=== PATIENT | female | born 1965 | race Caucasian/White ===

== ENCOUNTER → 2016-04-19 | Outpatient (CLI) | payer OTHER ==
--- NOTE | 2016-04-21 09:53 | MM ---
Reason for exam: screening (asymptomatic). Last mammogram was performed 3 years and 7 months ago. History: Patient is postmenopausal. Family history of breast cancer in paternal aunt and breast cancer in maternal aunt at age 40. Benign US left CoreBiopsy of the left breast, 2010. Benign excisional biopsy of the left breast, 1979. Taking estrogen for 2 years 7 months beginning at age 44. Physical Findings: A clinical breast exam by your physician is recommended on an annual basis and results should be correlated with mammographic findings. MG Screening Mammo w CAD Bilateral CC and MLO view(s) were taken. Prior study comparison: September 08, 2012, bilateral digital screening mammo w/CAD. March 30, 2011, bilateral digital screening mammo w/CAD. The breast tissue is heterogeneously dense. This may lower the sensitivity of mammography. Previous mammotome biopsy in the left breast. There is no discrete abnormality. No significant changes when compared with prior studies. ASSESSMENT: Benign, BI-RAD 2 RECOMMENDATION: Routine screening mammogram of both breasts in 1 year.
== END | disposition home or self-care (01) ==
LOC: RADMAMWWP 11:30
PROVIDERS: ATTEND Specialist
DX: Z12.31 Encounter for screening mammogram for malignant neoplasm of breast (principal)

== ENCOUNTER → 2017-11-01 | Outpatient (CLI) | payer OTHER ==
[2017-11-01 12:37] LABS: Blood Urea Nitrogen 11 mg/dL (7-17)
--- NOTE | 2017-11-01 14:07 | CT ---
EXAMINATION TYPE: CT abdomen pelvis w con DATE OF EXAM: 11/01/2017 COMPARISON: 04/19/2012 HISTORY: Right lower quadrant pain CT DLP: 2626.9 mGycm Automated exposure control for dose reduction was used. CONTRAST: CT scan of the abdomen pelvis is performed with IV Contrast, patient injected with 100 mL of Isovue 3 00. FINDINGS- LUNG BASES- No significant abnormality is appreciated. LIVER/GB-there is diffusely reduced in attenuation correlate for hepatic steatosis. PANCREAS- No gross abnormality is seen. SPLEEN- No gross abnormality is seen. ADRENALS-stable nonspecific 1 cm nodularity of the left adrenal gland. KIDNEYS/BLADDER- no hydronephrosis nephrolithiasis or renal mass. BOWEL-bowel gas pattern nonspecific. Appendix normal.. LYMPH NODES- No greater than 1cm abdominal or pelvic lymph nodes areappreciated. OSSEOUS STRUCTURES-hypertrophic and degenerative change of the spine.. OTHER- aorta of normal caliber. No free fluid or free air. IMPRESSION- 1. Hepatic steatosis
== END ==
LOC: RADCTMAIN 11:28
PROVIDERS: ATTEND Family Medicine
DX: K76.0 Fatty (change of) liver, not elsewhere classified (principal)
CPT/HCPCS: 82565; 84520; 74177; 36415; Q9967

== ENCOUNTER 2018-04-11 15:39 | Inpatient (IN) | payer OTHER ==
[2018-04-11 16:27] LABS: Basophils # (A) 0.1 k/uL (0-0.2); Basophils % (A) 0 %; Eosinophils # (A) 0.1 k/uL (0-0.7); Eosinophils % (A) 1 %; HGB 14.6 gm/dL (11.4-16.0); Lymphocytes # (A) 1.8 k/uL (1.0-4.8); Lymphocytes % (A) 13 %; MCH 27.6 pg (25.0-35.0); MCHC 32.3 g/dL (31.0-37.0); MCV 85.5 fL (80.0-100.0); Mean Platelet Volume 7.6; Monocytes # (A) 0.4 k/uL (0-1.0); Monocytes % (A) 2 %; Neutrophils # (A) 12.2 k/uL (1.3-7.7); Neutrophils % (A) 83 %; Platelet Count 339 k/uL (150-450); RBC 5.27 m/uL (3.80-5.40); RDW 13.8 % (11.5-15.5); WBC 14.7 k/uL (3.8-10.6)
[2018-04-11 16:35] LABS: Anion Gap 12 mmol/L; Blood Urea Nitrogen 16 mg/dL (7-17); Calcium 10.4 mg/dL (8.4-10.2); Carbon Dioxide 24 mmol/L (22-30); Chloride 102 mmol/L (98-107); Glucose 237 mg/dL (74-99); Potassium 4.6 mmol/L (3.5-5.1); Sodium 138 mmol/L (137-145)
--- NOTE | 2018-04-11 16:36 | ED ---
Skin/Abscess/FB HPI - General Source: patient, RN notes reviewed Mode of arrival: ambulatory Limitations: no limitations <Cristino Morgan - Last Filed: 04/11/18 18:01> <Caleb Caputo - Last Filed: 04/11/18 18:53> - General Chief complaint: Skin/Abscess/Foreign Body Stated complaint: POSS SPIDER BITE Time Seen by Provider: 04/11/18 15:55 - History of Present Illness Initial comments: 52-year-old female presents emergency Department chief complaint of infection, bite above her right eye. Patient states it has been there for over 10 days. Patient has been on clindamycin, recent started on doxycycline and prednisone. She states she does not feel this any better. She has NO KNOWN DRUG ALLERGIES. Patient has no history of skin infections. Denies any pain with ocular movement. She states that they're a red area and swelling around her right eye. Denies any blurred vision, headache or dizziness. (Cristino Morgan) - Related Data Home Medications Medication Instructions Recorded Confirmed Doxycycline [Vibramycin] 100 mg PO BID 04/11/18 04/11/18 Estradiol [Estrace] 1 mg PO DAILY 04/11/18 04/11/18 FLUoxetine HCL [PROzac] 40 mg PO HS 04/11/18 04/11/18 Insulin Glargine,Hum.rec.anlog 56 unit SQ HS 04/11/18 04/11/18 [Basaglar Kwikpen U-100] Levothyroxine Sodium [Synthroid] 75 mcg PO DAILY 04/11/18 04/11/18 Pravastatin Sodium [Pravachol] 20 mg PO HS 04/11/18 04/11/18 buPROPion XL [Wellbutrin Xl] 300 mg PO HS 04/11/18 04/11/18 glipiZIDE [Glucotrol] 5 mg PO DAILY 04/11/18 04/11/18 metFORMIN HCL [Glucophage] 850 mg PO BID 04/11/18 04/11/18 predniSONE 50 mg PO DAILY 04/11/18 04/11/18 sitaGLIPtin [Januvia] 50 mg PO DAILY 04/11/18 04/11/18 Allergies Allergy/AdvReac Type Severity Reaction Status Date / Time No Known Allergies Allergy Verified 04/11/18 16:56 Review of Systems ROS Other: All systems not noted in ROS Statement are negative. <Cristino Morgan - Last Filed: 04/11/18 18:01> ROS Other: All systems not noted in ROS Statement are negative. <Caleb Caputo - Last Filed: 04/11/18 18:53> ROS Statement: Those systems with pertinent positive or pertinent negative responses have been documented in the HPI. Past Medical History Past Medical History: Diabetes Mellitus, Hypertension History of Any Multi-Drug Resistant Organisms: None Reported Past Surgical History: Hysterectomy Past Psychological History: No Psychological Hx Reported Smoking Status: Never smoker Past Alcohol Use History: None Reported Past Drug Use History: None Reported <Cristino Morgan - Last Filed: 04/11/18 18:01> General Exam Limitations: no limitations General appearance: alert, in no apparent distress Head exam: Present: atraumatic, normocephalic, normal inspection Eye exam: Present: normal appearance, PERRL, EOMI, periorbital swelling (Mild right with erythema, sore noted above the right arm). Absent: scleral icterus, conjunctival injection ENT exam: Present: normal exam, normal oropharynx, mucous membranes moist, TM's normal bilaterally, normal external ear exam Neck exam: Present: normal inspection, full ROM. Absent: tenderness, meningismus, lymphadenopathy Respiratory exam: Present: normal lung sounds bilaterally. Absent: respiratory distress, wheezes, rales, rhonchi, stridor Cardiovascular Exam: Present: regular rate, normal rhythm, normal heart sounds. Absent: systolic murmur, diastolic murmur, rubs, gallop, clicks <Cristino Morgan - Last Filed: 04/11/18 18:01> Course <Cristino Morgan - Last Filed: 04/11/18 18:01> <Caleb Caputo - Last Filed: 04/11/18 18:53> Vital Signs 04/11/18 04/11/18 15:43 17:48 Temperature 98.6 F Pulse Rate 94 93 Respiratory 18 18 Rate Blood Pressure 145/84 133/96 O2 Sat by Pulse 99 96 Oximetry - Reevaluation(s) Reevaluation #1: 04/11/18 18:52 PA supervision: I proceeded bild-at-ofaw evaluation the patient and did discuss the findings with her and her . Patient presented with a left for had lesion possibly a spider bite that has not been on 2 courses of antibiotics and is getting worse not better. She does have evidence of preseptal edema. This is confirmed on CAT scan. I did discuss the case with Dr. Briggs. The patient will be admitted with infectious disease consultation. I do agree with the assessment and plan the patient and her are also in agreement. (Caleb Caputo) Medical Decision Making - Lab Data Result diagrams: 04/11/18 14:12 04/11/18 14:12 <Cristino Morgan - Last Filed: 04/11/18 18:01> - Lab Data Result diagrams: 04/11/18 14:12 04/11/18 14:12 <Caleb Caputo - Last Filed: 04/11/18 18:53> - Medical Decision Making 52-year-old female presented emergency department for facial swelling. Patient CT and lab work. Patient found to have mild periorbital cellulitis. Patient will be admitted as she's failed outpatient treatment. Rocephin initially given , vancomycin is added. (Cristino Morgan) - Lab Data Lab Results 04/11/18 04/11/18 Range/Units 14:12 14:12 WBC 14.7 H (3.8-10.6) k/uL RBC 5.27 (3.80-5.40) m/uL Hgb 14.6 (11.4-16.0) gm/dL Hct 45.0 (34.0-46.0) % MCV 85.5 (80.0-100.0) fL MCH 27.6 (25.0-35.0) pg MCHC 32.3 (31.0-37.0) g/dL RDW 13.8 (11.5-15.5) % Plt Count 339 (150-450) k/uL Neutrophils % 83 % Lymphocytes % 13 % Monocytes % 2 % Eosinophils % 1 % Basophils % 0 % Neutrophils # 12.2 H (1.3-7.7) k/uL Lymphocytes # 1.8 (1.0-4.8) k/uL Monocytes # 0.4 (0-1.0) k/uL Eosinophils # 0.1 (0-0.7) k/uL Basophils # 0.1 (0-0.2) k/uL Sodium 138 (137-145) mmol/L Potassium 4.6 (3.5-5.1) mmol/L Chloride 102 (98-107) mmol/L Carbon Dioxide 24 (22-30) mmol/L Anion Gap 12 mmol/L BUN 16 (7-17) mg/dL Creatinine 0.70 (0.52-1.04) mg/dL Est GFR (CKD-EPI)AfAm >90 (>60 ml/min/1.73 sqM) Est GFR (CKD-EPI)NonAf >90 (>60 ml/min/1.73 sqM) Glucose 237 H (74-99) mg/dL Calcium 10.4 H (8.4-10.2) mg/dL Disposition <Cristino Morgan - Last Filed: 04/11/18 18:01> <Caleb Caputo - Last Filed: 04/11/18 18:53> Clinical Impression: Periorbital cellulitis Disposition: ADMITTED IP TO THIS HOSP Condition: Fair
--- NOTE | 2018-04-11 17:46 | CT ---
EXAMINATION TYPE: CT orbits w con DATE OF EXAM: 04/11/2018 COMPARISON: None HISTORY: WOUND TO RIGHT SUPERIOR ORBITAL AREA CT DLP: 312.6 mGycm Automated exposure control for dose reduction was used. CONTRAST: Performed with IV Contrast, patient injected with 100 mL of Isovue 300. FINDINGS: Right orbit shows mild preseptal soft tissue swelling. The right orbit and its structures are intact. No fracture. The left orbit has normal appearance. Paranasal sinuses are clear. Facial skeleton is negative. No incidental soft tissue findings. IMPRESSION: MILD RIGHT ORBITAL PRESEPTAL SOFT TISSUE SWELLING; NO OTHER FINDINGS.
[2018-04-11] MEDS ORDERED: VANCOMYCIN IV PER PHARMACY 1 EACH MISC MISCELLANE PRN (18:00)
[2018-04-11] MEDS ORDERED: NALOXONE 0.4 MG/ML 1 ML VIAL IV PRN (18:01)
[2018-04-11] MEDS ORDERED: IBUPROFEN 400 MG TAB PO PRN (18:01)
[2018-04-11] MEDS ORDERED: ACETAMINOPHEN TAB 325 MG TAB PO PRN (18:01)
[2018-04-11] MEDS ORDERED: VANCOMYCIN 1,750 MG in SODIUM CHLORIDE 0.9% 500 ML 500 ML IVPB STA (18:08)
[2018-04-11] MEDS: SODIUM CHLORIDE 0.9% 1,000 ML IV SCH (18:51)
[2018-04-11] MEDS: FLUoxetine HCL 20 MG CAP PO SCH (21:23)
[2018-04-11] MEDS: buPROPion XL 300 MG TAB.ER.24H PO SCH (21:24)
[2018-04-11] MEDS: PRAVASTATIN SODIUM 20 MG TAB PO SCH (21:24)
[2018-04-11] MEDS: INSULIN DETEMIR 100 UNIT/ML 10 ML VIAL SQ SCH (21:26)
[2018-04-11 21:35] LABS: Glucose,Whole Blood 345 mg/dL (75-99)
[2018-04-11] MEDS: metFORMIN 850 MG TAB PO SCH (22:26)
[2018-04-11] MEDS: HYDROcodone/APAP 5-325MG 1 EACH TAB PO PRN (22:32)
[2018-04-12] MEDS: LEVOTHYROXINE 75 MCG TAB PO SCH (06:33)
[2018-04-12 07:19] LABS: Glucose,Whole Blood 88 mg/dL (75-99)
[2018-04-12] MEDS: glipiZIDE 5 MG TAB PO SCH (08:27)
[2018-04-12] MEDS: LINAGLIPTIN 5 MG TABLET PO SCH (08:28)
[2018-04-12] MEDS: metFORMIN 850 MG TAB PO SCH ×2 (08:28→17:59)
[2018-04-12] MEDS: HYDROcodone/APAP 5-325MG 1 EACH TAB PO PRN ×2 (08:28→16:57)
[2018-04-12] MEDS: ESTRADIOL 0.5 MG TAB PO SCH (08:29)
[2018-04-12] MEDS: SODIUM CHLORIDE 0.9% 1,000 ML IV SCH ×2 (08:29→22:43)
[2018-04-12 08:59] LABS: Basophils # (A) 0.1 k/uL (0-0.2); Basophils % (A) 1 %; Eosinophils # (A) 0.1 k/uL (0-0.7); Eosinophils % (A) 1 %; HCT 41.1 % (34.0-46.0); Lymphocytes % (A) 35 %; MCH 27.3 pg (25.0-35.0); MCHC 31.6 g/dL (31.0-37.0); MCV 86.5 fL (80.0-100.0); Mean Platelet Volume 7.5; Monocytes # (A) 0.7 k/uL (0-1.0); Monocytes % (A) 4 %; Neutrophils # (A) 8.5 k/uL (1.3-7.7); Neutrophils % (A) 57 %; Platelet Count 320 k/uL (150-450); RBC 4.75 m/uL (3.80-5.40); RDW 13.9 % (11.5-15.5); WBC 14.8 k/uL (3.8-10.6)
[2018-04-12] MEDS ORDERED: VANCOMYCIN 1,750 MG in SODIUM CHLORIDE 0.9% 500 ML 500 ML IVPB SCH (09:00)
[2018-04-12 09:02] LABS: Lymphocytes # (A) 5.2 k/uL (1.0-4.8)
[2018-04-12 09:24] LABS: ALT 20 U/L (9-52); AST 17 U/L (14-36); Albumin 3.8 g/dL (3.5-5.0); Alkaline Phosphatase 71 U/L (38-126); Anion Gap 7 mmol/L; Blood Urea Nitrogen 15 mg/dL (7-17); Calcium 9.4 mg/dL (8.4-10.2); Carbon Dioxide 30 mmol/L (22-30); Chloride 104 mmol/L (98-107); Glucose 180 mg/dL (74-99); Potassium 4.3 mmol/L (3.5-5.1); Sodium 141 mmol/L (137-145); Total Bilirubin 0.2 mg/dL (0.2-1.3); Total Protein 6.5 g/dL (6.3-8.2)
[2018-04-12] MEDS: DAPTOmycin 500 MG in SODIUM CHLORIDE 0.9% 50 ML IVPB SCH (09:38)
[2018-04-12] MEDS: MUPIROCIN 2% OINT 22 GM TUBE TOPICAL SCH ×3 (09:38→22:45)
[2018-04-12 11:08] LABS: Poikilocytosis (M) Present
[2018-04-12 11:44] LABS: Glucose,Whole Blood 86 mg/dL (75-99)
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
[2018-04-12] MEDS: ONDANSETRON 4 MG/2 ML VIAL IVP PRN ×2 (12:43→18:46)
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
[2018-04-12 17:35] LABS: Glucose,Whole Blood 119 mg/dL (75-99)
[2018-04-12 20:24] LABS: Glucose,Whole Blood 207 mg/dL (75-99)
--- NOTE | 2018-04-12 22:01 | P.CON ---
Consult Note - . Consult date: 04/12/18 Assessment/Plan:: This is a morbidly obese 52-year-old female who gives history that she noticed a bump on her forehead over her right eye about 2 weeks ago and she initially thought it was a spider bite. It felt like a mosquito bite and initially it was itchy. She was seen by her primary care doctor and was put on clindamycin for both a sinus infection and also for this lesion on her forehead. She states that was started on of last week and she was also placed on prednisone for 5 days which she completed yesterday. On Tuesday she was not getting any better and actually she had increased swelling to her face and it spread into her right orbit, the cheek and jaw with enlarged lymph nodes. On Tuesday she had a recheck with her doctor and was placed on doxycycline and has taken a total of 3 doses with only increasing redness and edema. She states she has been using antibacterial soap on the area and now it has a dark spot in the middle but no drainage she has been applying triple antibiotic ointment. The pain became more severe and the swelling in her eye affected her vision and she came into [facility] emergency center for evaluation. She has been afebrile, white count 14.7, creatinine 0.7. CAT scan of the head and orbit showed mild right orbital preseptal soft tissue swelling. Patient was started on Rocephin and vancomycin and admitted to the [facility] floor. Blood cultures in progress. Patient states that ice has helped a little bit with the pain but otherwise she is not feeling much better. Patient believes that her last hemoglobin A1c was around 7. please see the consult note is dictated by nurse practitioner Mrs. Emy Alonzo. this pleasant 52-year-old woman is a known history of diabetes mellitus developed the significant preseptal cellulitis of the right periorbital area. The patient was convinced that she had a brown recluse spider bite. We discussed that they are not endemic to [place], it is winter and highly unlikely that this is the etiology of this problem. With her diabetes in the current abnormality it is highly likely this is a staphylococcal infection, could even be MRSA although she has no history, it would treat appropriately. Ceftriaxone and daptomycin have been initiated while cultures are in process. With antibiotic therapy she is now showing improvement already from the time of admission. Leukocytosis is due to underlying infection. The patient does not understand other than some head injury how she could obtain this infection. We do discuss that infections occur in patients with diabetes are more likely to have infections and others. Innocuous injury and trauma often initiates these have infections. There is evidence of any necrosis, the site appears to have more of a phlegmon and abscess and surgical drainage is not indicated at this time but may change required drainage in the near future. Would continue current course of antibiotic therapy. Is having significant pain we'll transition Motrin to Toradol to improve pain control. I agree with the evaluation assessment and plan as dictated by nurse practitioner Mrs. Emy Alonzo.
[2018-04-12] MEDS: buPROPion XL 300 MG TAB.ER.24H PO SCH (22:44)
[2018-04-12] MEDS: PRAVASTATIN SODIUM 20 MG TAB PO SCH (22:44)
[2018-04-12] MEDS: INSULIN DETEMIR 100 UNIT/ML 10 ML VIAL SQ SCH (22:44)
[2018-04-12] MEDS: FLUoxetine HCL 20 MG CAP PO SCH (22:44)
[2018-04-12] MEDS: KETOROLAC 30 MG/ML 1 ML VIAL IVP SCH (23:37)
[2018-04-13] MEDS: KETOROLAC 30 MG/ML 1 ML VIAL IVP SCH ×3 (05:42→17:53)
[2018-04-13] MEDS: LEVOTHYROXINE 75 MCG TAB PO SCH (05:43)
[2018-04-13 07:17] LABS: Glucose,Whole Blood 69 mg/dL (75-99)
[2018-04-13 07:29] LABS: Glucose,Whole Blood 98 mg/dL (75-99)
[2018-04-13 08:34] LABS: HCT 41.4 % (34.0-46.0); Hypochromasia Slight; MCH 27.2 pg (25.0-35.0); MCHC 31.3 g/dL (31.0-37.0); MCV 87.1 fL (80.0-100.0); Mean Platelet Volume 7.6; Platelet Count 333 k/uL (150-450); RBC 4.76 m/uL (3.80-5.40); WBC 12.1 k/uL (3.8-10.6)
[2018-04-13 08:57] LABS: ALT 24 U/L (9-52); AST 19 U/L (14-36); Albumin 3.5 g/dL (3.5-5.0); Alkaline Phosphatase 66 U/L (38-126); Anion Gap 8 mmol/L; Blood Urea Nitrogen 15 mg/dL (7-17); Calcium 9.3 mg/dL (8.4-10.2); Carbon Dioxide 29 mmol/L (22-30); Chloride 105 mmol/L (98-107); Glucose 94 mg/dL (74-99); Potassium 4.1 mmol/L (3.5-5.1); Sodium 142 mmol/L (137-145); Total Bilirubin 0.2 mg/dL (0.2-1.3); Total Protein 6.2 g/dL (6.3-8.2)
[2018-04-13] MEDS: DAPTOmycin 500 MG in SODIUM CHLORIDE 0.9% 50 ML IVPB SCH (09:00)
[2018-04-13] MEDS: metFORMIN 850 MG TAB PO SCH ×2 (09:02→17:53)
[2018-04-13] MEDS: LINAGLIPTIN 5 MG TABLET PO SCH (09:02)
[2018-04-13] MEDS: PANTOPRAZOLE 40 MG TABLET PO SCH (09:02)
[2018-04-13] MEDS: glipiZIDE 5 MG TAB PO SCH (09:02)
[2018-04-13] MEDS: ENOXAPARIN 40 MG/0.4 ML SYRINGE SQ SCH (09:02)
[2018-04-13] MEDS: MUPIROCIN 2% OINT 22 GM TUBE TOPICAL SCH ×3 (09:02→20:53)
[2018-04-13] MEDS: ESTRADIOL 0.5 MG TAB PO SCH (09:02)
[2018-04-13] MEDS: HYDROcodone/APAP 5-325MG 1 EACH TAB PO PRN ×2 (09:05→21:01)
[2018-04-13 10:35] LABS: Eosinophils # (M) 0.24 k/uL (0-0.7); Lymphocytes # (M) 5.08 k/uL (1.0-4.8); Monocytes # (M) 0.85 k/uL (0-1.0); Neutrophils # (M) 5.93 k/uL (1.3-7.7); Neutrophils % (M) 49 %; Nucleated Red Blood Cells 0 /100 WBC (0-0); Total Cells Counted 100
[2018-04-13 10:36] LABS: Anisocytosis (M) Present; Poikilocytosis (M) Present
--- NOTE | 2018-04-13 12:02 | P.PN ---
Subjective Progress Note Date: 04/13/18 This is a 52-year-old female patient of Dr. Galo. Patient presented to the emergency room with complaints of increased pain and swelling over right eye possibly due to bug bite. Patient states this has been happening for about 10 days. Patient does not remember seeing about but believes that she was bitten by something throughout the night. Patient was treated outpatient with minimal improvement. She has past medical history of diabetes mellitus and hypertension. CT of the orbit is and had completed showing mild right orbital preseptal soft tissue swelling with no other findings. Dr. Davis has been consulted for infectious disease. Patient started on Rocephin and daptomycin per infectious disease. Blood cultures have been ordered. At this time patient denies chest pain or shortness breath. Patient denies nausea vomiting or diarrhea. Patient denies any urinary burning or frequency. On 04/13/2017 patient is alert and oriented 3. Patient does report some slight improvement with right eye edema and discomfort. Patient remains on Rocephin and daptomycin per infectious disease. Blood cultures currently pending. She denies chest pain or shortness breath. Patient denies nausea vomiting or diarrhea. Patient denies any urinary burning or frequency. Objective - Vital Signs Vital signs: Vital Signs Temp 98.8 F 04/13/18 08:03 Pulse 73 04/13/18 08:03 Resp 18 04/13/18 08:03 BP 144/77 04/13/18 08:03 Pulse Ox 94 L 04/13/18 08:03 Intake & Output 04/12/18 04/13/18 04/13/18 18:59 06:59 18:59 Intake Total 500 690 Balance 500 690 Intake: Intake, IV Titration 150 Amount Sodium Chloride 0.9% 1, 150 000 ml @ 75 mls/hr IV . [id number] PATRICK Rx#:[id number] Oral 500 540 Other: Voiding Method Toilet Toilet # Voids 3 - Exam Head above the right eye redness with small puncture wound noted. Swelling noted to periorbital area Neck supple Lungs clear to auscultation bilaterally no wheezing or crackles Heart regular rate and rhythm S1-S2, no rub or gallop Abdomen is soft nontender nondistended positive bowel sounds no hepatosplenomegaly Extremities no edema Neuro alert and orientated to 3 - Labs CBC & Chem 7: 04/13/18 07:49 04/13/18 07:49 Labs: Abnormal Lab Results - Last 24 Hours (Table) 04/12/18 04/12/18 04/13/18 Range/Units 17:11 20:13 07:02 WBC (3.8-10.6) k/uL Lymphocytes # (Manual) (1.0-4.8) k/uL POC Glucose (mg/dL) 119 H 207 H 69 L (75-99) mg/dL Total Protein (6.3-8.2) g/dL 04/13/18 04/13/18 Range/Units 07:49 07:49 WBC 12.1 H (3.8-10.6) k/uL Lymphocytes # (Manual) 5.08 H (1.0-4.8) k/uL POC Glucose (mg/dL) (75-99) mg/dL Total Protein 6.2 L (6.3-8.2) g/dL Microbiology - Last 24 Hours (Table) 04/11/18 14:12 Blood Culture - Preliminary Blood No Growth after 24 hours Assessment and Plan Assessment: 1. Periorbital cellulitis. CT completed showing mild right orbital preseptal soft tissue swelling; no other findings. Dr. Davis has been consulted for infectious disease. Patient started on Rocephin and daptomycin. Blood culture ordered. White blood cell improving to 12.1 2. Diabetes mellitus. Home medications resumed. 3. History of hyperlipidemia. Home meds resumed 4. History of essential hypertension. 5. Hypothyroidism 6. History of anxiety and depression. Home medications resumed DVT prophylaxis Lovenox. GI prophylaxis Protonix I performed an examination of the patient and discussed their management with the Nurse Practitioner. I have reviewed the Nurse Practitioner's notes and agree with the documented findings and plan of care
[2018-04-13 12:06] LABS: Glucose,Whole Blood 129 mg/dL (75-99)
[2018-04-13 17:07] LABS: Glucose,Whole Blood 134 mg/dL (75-99)
[2018-04-13] MEDS: SODIUM CHLORIDE 0.9% 1,000 ML IV SCH ×2 (19:05→20:54)
[2018-04-13 20:13] LABS: Hemoglobin A1C 8.5 % (4.0-6.0)
[2018-04-13 20:27] LABS: Glucose,Whole Blood 237 mg/dL (75-99)
[2018-04-13] MEDS: FLUoxetine HCL 20 MG CAP PO SCH (20:53)
[2018-04-13] MEDS: buPROPion XL 300 MG TAB.ER.24H PO SCH (20:53)
[2018-04-13] MEDS: INSULIN DETEMIR 100 UNIT/ML 10 ML VIAL SQ SCH (20:53)
[2018-04-13] MEDS: PRAVASTATIN SODIUM 20 MG TAB PO SCH (20:53)
[2018-04-13] MEDS ORDERED: KETOROLAC 30 MG/ML 1 ML VIAL IVP SCH (22:01)
[2018-04-14] MEDS: KETOROLAC 30 MG/ML 1 ML VIAL IVP SCH ×5 (00:34→23:37)
[2018-04-14 04:47] LABS: Glucose,Whole Blood 81 mg/dL (75-99)
[2018-04-14] MEDS: LEVOTHYROXINE 75 MCG TAB PO SCH (05:38)
[2018-04-14 07:32] LABS: Glucose,Whole Blood 188 mg/dL (75-99)
[2018-04-14 08:32] LABS: Basophils % (A) 1 %; Eosinophils # (A) 0.3 k/uL (0-0.7); Eosinophils % (A) 3 %; HCT 38.8 % (34.0-46.0); HGB 12.4 gm/dL (11.4-16.0); Hypochromasia Slight; Lymphocytes # (A) 2.8 k/uL (1.0-4.8); Lymphocytes % (A) 30 %; MCH 27.8 pg (25.0-35.0); MCHC 31.8 g/dL (31.0-37.0); MCV 87.2 fL (80.0-100.0); Monocytes # (A) 0.5 k/uL (0-1.0); Monocytes % (A) 5 %; Neutrophils # (A) 5.6 k/uL (1.3-7.7); Neutrophils % (A) 59 %; Platelet Count 278 k/uL (150-450); RBC 4.45 m/uL (3.80-5.40); RDW 13.9 % (11.5-15.5); WBC 9.4 k/uL (3.8-10.6)
[2018-04-14 08:54] LABS: ALT 20 U/L (9-52); AST 15 U/L (14-36); Albumin 3.2 g/dL (3.5-5.0); Alkaline Phosphatase 62 U/L (38-126); Anion Gap 6 mmol/L; Blood Urea Nitrogen 14 mg/dL (7-17); Calcium 9.1 mg/dL (8.4-10.2); Carbon Dioxide 29 mmol/L (22-30); Chloride 106 mmol/L (98-107); Glucose 168 mg/dL (74-99); Potassium 4.8 mmol/L (3.5-5.1); Sodium 141 mmol/L (137-145); Total Bilirubin 0.2 mg/dL (0.2-1.3); Total Protein 5.8 g/dL (6.3-8.2)
[2018-04-14 10:16] VITALS: RESP 16
[2018-04-14] MEDS: ENOXAPARIN 40 MG/0.4 ML SYRINGE SQ SCH (10:16)
[2018-04-14] MEDS: DAPTOmycin 500 MG in SODIUM CHLORIDE 0.9% 50 ML IVPB SCH (10:16)
[2018-04-14] MEDS: metFORMIN 850 MG TAB PO SCH ×2 (10:17→17:50)
[2018-04-14] MEDS: glipiZIDE 5 MG TAB PO SCH (10:17)
[2018-04-14] MEDS: PANTOPRAZOLE 40 MG TABLET PO SCH (10:17)
[2018-04-14] MEDS: LINAGLIPTIN 5 MG TABLET PO SCH (10:17)
[2018-04-14] MEDS: MUPIROCIN 2% OINT 22 GM TUBE TOPICAL SCH ×3 (10:19→21:12)
--- NOTE | 2018-04-14 11:01 | P.PN ---
Subjective Progress Note Date: 04/14/18 This is a 52-year-old female patient of Dr. Galo. Patient presented to the emergency room with complaints of increased pain and swelling over right eye possibly due to bug bite. Patient states this has been happening for about 10 days. Patient does not remember seeing about but believes that she was bitten by something throughout the night. Patient was treated outpatient with minimal improvement. She has past medical history of diabetes mellitus and hypertension. CT of the orbit is and had completed showing mild right orbital preseptal soft tissue swelling with no other findings. Dr. Davis has been consulted for infectious disease. Patient started on Rocephin and daptomycin per infectious disease. Blood cultures have been ordered. At this time patient denies chest pain or shortness breath. Patient denies nausea vomiting or diarrhea. Patient denies any urinary burning or frequency. On 04/13/2017 patient is alert and oriented 3. Patient does report some slight improvement with right eye edema and discomfort. Patient remains on Rocephin and daptomycin per infectious disease. Blood cultures currently pending. She denies chest pain or shortness breath. Patient denies nausea vomiting or diarrhea. Patient denies any urinary burning or frequency. On 04/14/2017 patient is alert and oriented 3. Patient does state some improvement to eye swelling and headache. Blood culture currently remains negative. At this time patient denies chest pain or shortness of breath. Patient denies nausea vomiting or diarrhea. Patient denies any urinary burning or frequency. Objective - Vital Signs Vital signs: Vital Signs Temp 97.5 F L 04/14/18 10:15 Pulse 73 04/14/18 10:15 Resp 16 04/14/18 10:15 BP 119/80 04/14/18 10:15 Pulse Ox 96 04/14/18 10:15 Intake & Output 04/13/18 04/14/18 04/14/18 18:59 06:59 18:59 Intake Total 1905 Balance 1905 Intake: Intake, IV Titration 825 Amount Sodium Chloride 0.9% 1, 775 000 ml @ 75 mls/hr IV . [id number] PATRICK Rx#:[id number] cefTRIAXone 1,000 mg In 50 Sodium Chloride 0.9% 50 ml @ 100 mls/hr IVPB Q12H PATRICK Rx#:[id number] Oral 1080 Other: # Voids 2 2 # Bowel Movements 1 - Exam Head above the right eye redness with small puncture wound noted. Swelling noted to periorbital area Neck supple Lungs clear to auscultation bilaterally no wheezing or crackles Heart regular rate and rhythm S1-S2, no rub or gallop Abdomen is soft nontender nondistended positive bowel sounds no hepatosplenomegaly Extremities no edema Neuro alert and orientated to 3 - Labs CBC & Chem 7: 04/14/18 07:24 04/14/18 07:24 Labs: Abnormal Lab Results - Last 24 Hours (Table) 04/13/18 04/13/18 04/13/18 Range/Units 07:49 11:53 16:50 Glucose (74-99) mg/dL POC Glucose (mg/dL) 129 H 134 H (75-99) mg/dL Hemoglobin A1c 8.5 H (4.0-6.0) % Total Protein (6.3-8.2) g/dL Albumin (3.5-5.0) g/dL 04/13/18 04/14/18 04/14/18 Range/Units 20:16 07:18 07:24 Glucose 168 H (74-99) mg/dL POC Glucose (mg/dL) 237 H 188 H (75-99) mg/dL Hemoglobin A1c (4.0-6.0) % Total Protein 5.8 L (6.3-8.2) g/dL Albumin 3.2 L (3.5-5.0) g/dL Microbiology - Last 24 Hours (Table) 04/11/18 14:12 Blood Culture - Preliminary Blood No Growth after 48 hours Assessment and Plan Assessment: 1. Periorbital cellulitis. CT completed showing mild right orbital preseptal soft tissue swelling; no other findings. Dr. Davis has been consulted for infectious disease. Patient started on Rocephin and daptomycin. White blood cell improving to 9.4. Blood culture currently negative 2. Diabetes mellitus. Home medications resumed. 3. History of hyperlipidemia. Home meds resumed 4. History of essential hypertension. 5. Hypothyroidism 6. History of anxiety and depression. Home medications resumed DVT prophylaxis Lovenox. GI prophylaxis Protonix I performed an examination of the patient and discussed their management with the Nurse Practitioner. I have reviewed the Nurse Practitioner's notes and agree with the documented findings and plan of care
[2018-04-14] MEDS ORDERED: ESTRADIOL 1 MG PO SCH (12:00)
[2018-04-14 12:04] LABS: Glucose,Whole Blood 175 mg/dL (75-99)
[2018-04-14 17:23] LABS: Glucose,Whole Blood 81 mg/dL (75-99)
[2018-04-14] MEDS: SODIUM CHLORIDE 0.9% 1,000 ML IV SCH (17:49)
[2018-04-14] MEDS: ESTRADIOL 1 MG PO SCH (17:52)
[2018-04-14 20:33] LABS: Glucose,Whole Blood 132 mg/dL (75-99)
[2018-04-14] MEDS: BACITRACIN/POLYMYX 500-10,000 UNIT/GM OINT 14 GM TUBE TOPICAL SCH ×2 (21:08→21:11)
[2018-04-14] MEDS: INSULIN DETEMIR 100 UNIT/ML 10 ML VIAL SQ SCH (21:10)
[2018-04-14] MEDS: ONDANSETRON 4 MG/2 ML VIAL IVP PRN (21:10)
[2018-04-14] MEDS: FLUoxetine HCL 20 MG CAP PO SCH (21:12)
[2018-04-14] MEDS: buPROPion XL 300 MG TAB.ER.24H PO SCH (21:12)
[2018-04-14] MEDS: PRAVASTATIN SODIUM 20 MG TAB PO SCH (21:12)
--- NOTE | 2018-04-14 23:53 | P.PN ---
Subjective Progress Note Date: 04/14/18 This is a morbidly obese 52-year-old female who gives history that she noticed a bump on her forehead over her right eye about 2 weeks ago and she initially thought it was a spider bite. It felt like a mosquito bite and initially it was itchy. She was seen by her primary care doctor and was put on clindamycin for both a sinus infection and also for this lesion on her forehead. She states that was started on of last week and she was also placed on prednisone for 5 days which she completed yesterday. On Tuesday she was not getting any better and actually she had increased swelling to her face and it spread into her right orbit, the cheek and jaw with enlarged lymph nodes. On Tuesday she had a recheck with her doctor and was placed on doxycycline and has taken a total of 3 doses with only increasing redness and edema. She states she has been using antibacterial soap on the area and now it has a dark spot in the middle but no drainage she has been applying triple antibiotic ointment. The pain became more severe and the swelling in her eye affected her vision and she came into [facility] emergency center for evaluation. She has been afebrile, white count 14.7, creatinine 0.7. CAT scan of the head and orbit showed mild right orbital preseptal soft tissue swelling. Patient was started on Rocephin and vancomycin and admitted to the [facility] floor. Blood cultures in progress. Patient states that ice has helped a little bit with the pain but otherwise she is not feeling much better. Patient believes that her last hemoglobin A1c was around 7. April 14 2018 patient is certainly much improved. The extensive swelling to the right eye and periorbital area is improved, that I is no longer swollen closed but does have some irritation to the right medial aspect of the eyelid from the extensive swelling. No open other lesions are seen. The site of staph infection on the right forehead is much improved, there is minimal softening of the hard indurated area that has not grossly fluctuant and there is no drainage. Objective - Vital Signs Vital signs: Vital Signs Temp 98.8 F 04/14/18 19:44 Pulse 83 04/14/18 19:44 Resp 16 04/14/18 19:44 BP 127/81 04/14/18 19:44 Pulse Ox 95 04/14/18 19:44 Intake & Output 04/14/18 04/14/18 04/15/18 06:59 18:59 06:59 Intake Total 1905 240 690 Balance 1905 240 690 Intake: Intake, IV Titration 825 150 Amount Sodium Chloride 0.9% 1, 775 150 000 ml @ 75 mls/hr IV . [id number] PATRICK Rx#:[id number] cefTRIAXone 1,000 mg In 50 Sodium Chloride 0.9% 50 ml @ 100 mls/hr IVPB Q12H PATRICK Rx#:[id number] Oral 1080 240 540 Other: Voiding Method Toilet # Voids 2 2 1 # Bowel Movements 1 - Exam Gen: This is a 52-year-old morbidly obese female. She is sitting up in bed and eating breakfast and appears to be comfortable and in no acute distress. HEENT: Head is atraumatic, normocephalic. Wound noted to the area above the right eyebrow, no drainage. He extensive edema there is also dullness in the eye closure is almost completely resolved is a small area of irritation on the right upper lid medial without drainage. Lesions are seen Sclerae is anicteric. Conjunctiva pink. Mucous members of the mouth are moist. No oral lesions. No oropharyngeal erythema or edema. Positive lymph node enlargement on the right. NECK: Supple. No JVD. No lymphadenopathy. No thyromegaly. LUNGS: Clear to auscultation. No wheezes or rhonchi. No intercostal retractions. HEART: Regular rate and rhythm. No murmur. ABDOMEN: Morbidly obese. Soft. Bowel sounds are present. No masses. No tenderness. EXTREMITIES: No pedal edema. No calf tenderness. Dorsalis pedis +2 bilaterally. NEUROLOGICAL: Patient is awake, alert and oriented x3 - Labs CBC & Chem 7: 04/14/18 07:24 04/14/18 07:24 Labs: Abnormal Lab Results - Last 24 Hours (Table) 04/14/18 04/14/18 04/14/18 Range/Units 07:18 07:24 11:51 Glucose 168 H (74-99) mg/dL POC Glucose (mg/dL) 188 H 175 H (75-99) mg/dL Total Protein 5.8 L (6.3-8.2) g/dL Albumin 3.2 L (3.5-5.0) g/dL 04/14/18 Range/Units 20:21 Glucose (74-99) mg/dL POC Glucose (mg/dL) 132 H (75-99) mg/dL Total Protein (6.3-8.2) g/dL Albumin (3.5-5.0) g/dL Microbiology - Last 24 Hours (Table) 04/11/18 14:12 Blood Culture - Preliminary Blood No Growth after 72 hours Laboratory Results WBC 9.4 k/uL (3.8-10.6) 04/14/18 07:24 RBC 4.45 m/uL (3.80-5.40) 04/14/18 07:24 Hgb 12.4 gm/dL (11.4-16.0) 04/14/18 07:24 Hct 38.8 % (34.0-46.0) 04/14/18 07:24 MCV 87.2 fL (80.0-100.0) 04/14/18 07:24 MCH 27.8 pg (25.0-35.0) 04/14/18 07:24 MCHC 31.8 g/dL (31.0-37.0) 04/14/18 07:24 RDW 13.9 % (11.5-15.5) 04/14/18 07:24 Plt Count 278 k/uL (150-450) 04/14/18 07:24 Neutrophils % 59 % 04/14/18 07:24 Neutrophils % (Manual) 49 % 04/13/18 07:49 Lymphocytes % 30 % 04/14/18 07:24 Lymphocytes % (Manual) 42 % 04/13/18 07:49 Monocytes % 5 % 04/14/18 07:24 Monocytes % (Manual) 7 % 04/13/18 07:49 Eosinophils % 3 % 04/14/18 07:24 Eosinophils % (Manual) 2 % 04/13/18 07:49 Basophils % 1 % 04/14/18 07:24 Neutrophils # 5.6 k/uL (1.3-7.7) 04/14/18 07:24 Neutrophils # (Manual) 5.93 k/uL (1.3-7.7) 04/13/18 07:49 Lymphocytes # 2.8 k/uL (1.0-4.8) 04/14/18 07:24 Lymphocytes # (Manual) 5.08 k/uL (1.0-4.8) H 04/13/18 07:49 Monocytes # 0.5 k/uL (0-1.0) 04/14/18 07:24 Monocytes # (Manual) 0.85 k/uL (0-1.0) 04/13/18 07:49 Eosinophils # 0.3 k/uL (0-0.7) 04/14/18 07:24 Eosinophils # (Manual) 0.24 k/uL (0-0.7) 04/13/18 07:49 Basophils # 0.0 k/uL (0-0.2) 04/14/18 07:24 Nucleated RBCs 0 /100 WBC (0-0) 04/13/18 07:49 Manual Slide Review Performed 04/12/18 08:33 Hypochromasia Slight 04/14/18 07:24 Poikilocytosis (manual Present 04/13/18 07:49 Anisocytosis (manual) Present 04/13/18 07:49 Sodium 141 mmol/L (137-145) 04/14/18 07:24 Potassium 4.8 mmol/L (3.5-5.1) 04/14/18 07:24 Chloride 106 mmol/L (98-107) 04/14/18 07:24 Carbon Dioxide 29 mmol/L (22-30) 04/14/18 07:24 Anion Gap 6 mmol/L 04/14/18 07:24 BUN 14 mg/dL (7-17) 04/14/18 07:24 Creatinine 0.76 mg/dL (0.52-1.04) 04/14/18 07:24 Est GFR (CKD-EPI)AfAm >90 (>60 ml/min/1.73 sqM) 04/14/18 07:24 Est GFR (CKD-EPI)NonAf 90 (>60 ml/min/1.73 sqM) 04/14/18 07:24 Glucose 168 mg/dL (74-99) H 04/14/18 07:24 POC Glucose (mg/dL) 132 mg/dL (75-99) H 04/14/18 20:21 POC Glu Hand Stitcher Mp Martin 04/14/18 20:[address] Glu mg/dL 197 04/13/18 07:49 Hemoglobin A1c 8.5 % (4.0-6.0) H 04/13/18 07:49 Calcium 9.1 mg/dL (8.4-10.2) 04/14/18 07:24 Total Bilirubin 0.2 mg/dL (0.2-1.3) 04/14/18 07:24 AST 15 U/L (14-36) 04/14/18 07:24 ALT 20 U/L (9-52) 04/14/18 07:24 Alkaline Phosphatase 62 U/L (38-126) 04/14/18 07:24 Total Protein 5.8 g/dL (6.3-8.2) L 04/14/18 07:24 Albumin 3.2 g/dL (3.5-5.0) L 04/14/18 07:24 Microbiology 04/11/18 14:12 Blood Blood Culture - Preliminary No Growth after 72 hours Assessment and Plan (1) Periorbital cellulitis Narrative/Plan: This pleasant 52-year-old woman is a known history of diabetes mellitus developed the significant preseptal cellulitis of the right periorbital area. The patient was convinced that she had a brown recluse spider bite. We discussed that they are not endemic to [place], it is winter and highly unlikely that this is the etiology of this problem. With her diabetes in the current abnormality it is highly likely this is a staphylococcal infection, could even be MRSA although she has no history, it would treat appropriately. Ceftriaxone and daptomycin have been initiated while cultures are in process. With antibiotic therapy she is now showing improvement already from the time of admission. Leukocytosis is due to underlying infection. The patient does not understand other than some head injury how she could obtain this infection. We do discuss that infections occur in patients with diabetes are more likely to have infections and others. Innocuous injury and trauma often initiates these have infections. There is evidence of any necrosis, the site appears to have more of a phlegmon and abscess and surgical drainage is not indicated at this time but may change required drainage in the near future. Would continue current course of antibiotic therapy. Is having significant pain we'll transition Motrin to Toradol to improve pain control. 04/14/2018 patient is markedly improved. Responding very well to current course of antibiotic therapy with Rocephin and daptomycin. The patient remains convinced that she has had a brown recluse spider bite that her brought home from [place] because his been working there. I suggest that she looks the [facility] website that reports that the vast majority of people think they have a spider bite that developed a skin lesion and infection is actually from staph or MRSA infection. She is responding very well to treatment of an infection and again information is given to her as to why this is most likely staphylococcal infection. Some topical Polysporin ophthalmic will be given to the bit of irritation to the eyelid. Expect that she will be considerably improved and likely Nicola for discharge home tomorrow. Antibiotic therapy can then be device. Severe headache has been well controlled with Toradol and overall she is improved. Current Visit: Yes Status: Acute Code(s): L03.213 - PERIORBITAL CELLULITIS SNOMED Code(s): 628942434
[2018-04-15 02:08] LABS: Glucose,Whole Blood 199 mg/dL (75-99)
[2018-04-15] MEDS: SODIUM CHLORIDE 0.9% 1,000 ML IV SCH (02:39)
[2018-04-15] MEDS: LEVOTHYROXINE 75 MCG TAB PO SCH (05:35)
[2018-04-15] MEDS: KETOROLAC 30 MG/ML 1 ML VIAL IVP SCH ×2 (05:36→12:26)
[2018-04-15 07:20] LABS: Glucose,Whole Blood 98 mg/dL (75-99)
[2018-04-15 08:10] LABS: Basophils # (A) 0.1 k/uL (0-0.2); Basophils % (A) 1 %; Eosinophils # (A) 0.4 k/uL (0-0.7); Eosinophils % (A) 3 %; HCT 39.7 % (34.0-46.0); HGB 12.4 gm/dL (11.4-16.0); Lymphocytes # (A) 3.1 k/uL (1.0-4.8); Lymphocytes % (A) 29 %; MCH 27.3 pg (25.0-35.0); MCHC 31.3 g/dL (31.0-37.0); MCV 87.1 fL (80.0-100.0); Monocytes # (A) 0.6 k/uL (0-1.0); Monocytes % (A) 5 %; Neutrophils # (A) 6.4 k/uL (1.3-7.7); Neutrophils % (A) 60 %; Platelet Count 276 k/uL (150-450); RBC 4.55 m/uL (3.80-5.40); RDW 13.9 % (11.5-15.5); WBC 10.6 k/uL (3.8-10.6)
[2018-04-15 08:16] LABS: ALT 19 U/L (9-52); AST 17 U/L (14-36); Albumin 3.3 g/dL (3.5-5.0); Alkaline Phosphatase 68 U/L (38-126); Anion Gap 5 mmol/L; Blood Urea Nitrogen 12 mg/dL (7-17); Carbon Dioxide 29 mmol/L (22-30); Chloride 108 mmol/L (98-107); Glucose 99 mg/dL (74-99); Potassium 4.6 mmol/L (3.5-5.1); Sodium 142 mmol/L (137-145); Total Bilirubin 0.2 mg/dL (0.2-1.3)
[2018-04-15 08:56] VITALS: BP 123/75; PULSE 83; TEMP 98
[2018-04-15] MEDS: LINAGLIPTIN 5 MG TABLET PO SCH (08:56)
[2018-04-15] MEDS: glipiZIDE 5 MG TAB PO SCH (08:56)
[2018-04-15] MEDS: ONDANSETRON 4 MG/2 ML VIAL IVP PRN (08:56)
[2018-04-15] MEDS: PANTOPRAZOLE 40 MG TABLET PO SCH (08:57)
[2018-04-15] MEDS: metFORMIN 850 MG TAB PO SCH (08:57)
[2018-04-15] MEDS: DAPTOmycin 500 MG in SODIUM CHLORIDE 0.9% 50 ML IVPB SCH (08:57)
[2018-04-15] MEDS: ENOXAPARIN 40 MG/0.4 ML SYRINGE SQ SCH (08:57)
[2018-04-15] MEDS: BACITRACIN/POLYMYX 500-10,000 UNIT/GM OINT 14 GM TUBE TOPICAL SCH (09:00)
[2018-04-15] MEDS: MUPIROCIN 2% OINT 22 GM TUBE TOPICAL SCH (09:01)
[2018-04-15] MEDS: ESTRADIOL 1 MG PO SCH (09:01)
[2018-04-15 12:22] LABS: Glucose,Whole Blood 128 mg/dL (75-99)
--- NOTE | 2018-04-15 14:05 | P.DS ---
Providers Date of admission: 04/11/18 18:01 Expected date of discharge: 04/15/18 Attending physician: Sarah Briggs Consults: 04/11/18 18:30 Consult Physician Stat Consulting Provider: Raffi Davis Reason/Comments: Preseptal cellulitis Do you want consulting provider notified?: Yes Primary care physician: Rosamaria Galo [facility] Course: Discharge diagnosis 1. Periorbital cellulitis. CT completed showing mild right orbital preseptal soft tissue swelling; no other findings. Dr. Davis has been consulted for infectious disease. Patient started on Rocephin and daptomycin. White blood cell improving to 9.4. Blood culture currently negative. Patient has been cleared for discharge from infectious disease patient will be DC'd home on Bactrim per ID 2. Diabetes mellitus. Home medications resumed. 3. History of hyperlipidemia. Home meds resumed 4. History of essential hypertension. 5. Hypothyroidism 6. History of anxiety and depression. Home medications resumed Hospital course This is a 52-year-old female patient of Dr. Galo. Patient presented to the emergency room with complaints of increased pain and swelling over right eye possibly due to bug bite. Patient states this has been happening for about 10 days. Patient does not remember seeing about but believes that she was bitten by something throughout the night. Patient was treated outpatient with minimal improvement. She has past medical history of diabetes mellitus and hypertension. CT of the orbit is and had completed showing mild right orbital preseptal soft tissue swelling with no other findings. Dr. Davis has been consulted for infectious disease. Patient started on Rocephin and daptomycin per infectious disease. Blood cultures have been ordered. At this time patient denies chest pain or shortness breath. Patient denies nausea vomiting or diarrhea. Patient denies any urinary burning or frequency. On 04/13/2017 patient is alert and oriented 3. Patient does report some slight improvement with right eye edema and discomfort. Patient remains on Rocephin and daptomycin per infectious disease. Blood cultures currently pending. She denies chest pain or shortness breath. Patient denies nausea vomiting or diarrhea. Patient denies any urinary burning or frequency. On 04/14/2017 patient is alert and oriented 3. Patient does state some improvement to eye swelling and headache. Blood culture currently remains negative. At this time patient denies chest pain or shortness of breath. Patient denies nausea vomiting or diarrhea. Patient denies any urinary burning or frequency. On 04/15/2017 patient reports effusion she feels significantly improved swelling has significantly decreased to right orbital area. Patient states she feels ready to go home. Culture currently negative. Patient will be DC'd on Bactrim per ID. Patient to follow-up with primary care provider. White blood cell has normalized. At this time patient denies chest pain or shortness of breath. Denies nausea vomiting or diarrhea. Patient denies any urinary burning or frequency I performed an examination of the patient and discussed their management with the Nurse Practitioner. I have reviewed the Nurse Practitioner's notes and agree with the documented findings and plan of care Patient Condition at Discharge: Stable Plan - Discharge Summary Discharge Rx Participant: No New Discharge Prescriptions: New Ondansetron [Zofran ODT] 4 mg PO Q12HR #14 tab Sulfamethox-Tmp 800-160Mg [Bactrim DS 800-160 mg] 1 tab PO Q12HR #14 tab Continue glipiZIDE [Glucotrol] 5 mg PO DAILY Pravastatin Sodium [Pravachol] 20 mg PO HS Levothyroxine Sodium [Synthroid] 75 mcg PO DAILY Insulin Glargine,Hum.rec.anlog [Basaglar Kwikpen U-100] 56 unit SQ HS FLUoxetine HCL [PROzac] 40 mg PO HS sitaGLIPtin [Januvia] 50 mg PO DAILY Estradiol [Estrace] 1 mg PO DAILY metFORMIN HCL [Glucophage] 850 mg PO BID buPROPion XL [Wellbutrin XL] 300 mg PO HS Discontinued predniSONE 50 mg PO DAILY Doxycycline [Vibramycin] 100 mg PO BID Discharge Medication List Estradiol [Estrace] 1 mg PO DAILY 04/11/18 [History] FLUoxetine HCL [PROzac] 40 mg PO HS 04/11/18 [History] Insulin Glargine,Hum.rec.anlog [Basaglar Kwikpen U-100] 56 unit SQ HS 04/11/18 [ History] Levothyroxine Sodium [Synthroid] 75 mcg PO DAILY 04/11/18 [History] Pravastatin Sodium [Pravachol] 20 mg PO HS 04/11/18 [History] buPROPion XL [Wellbutrin XL] 300 mg PO HS 04/11/18 [History] glipiZIDE [Glucotrol] 5 mg PO DAILY 04/11/18 [History] metFORMIN HCL [Glucophage] 850 mg PO BID 04/11/18 [History] sitaGLIPtin [Januvia] 50 mg PO DAILY 04/11/18 [History] Ondansetron [Zofran ODT] 4 mg PO Q12HR #14 tab 04/15/18 [Rx] Sulfamethox-Tmp 800-160Mg [Bactrim DS 800-160 mg] 1 tab PO Q12HR #14 tab [Rx] Follow up Appointment(s)/Referral(s): Rosamaria Galo MD [Primary Care Provider] - 1-2 days Activity/Diet/Wound Care/Special Instructions: Activity as tolerated Diet regular Discharge Disposition: HOME SELF-CARE
--- NOTE | 2018-04-15 16:43 | P.PN ---
Subjective Progress Note Date: 04/15/18 This is a morbidly obese 52-year-old female who gives history that she noticed a bump on her forehead over her right eye about 2 weeks ago and she initially thought it was a spider bite. It felt like a mosquito bite and initially it was itchy. She was seen by her primary care doctor and was put on clindamycin for both a sinus infection and also for this lesion on her forehead. She states that was started on of last week and she was also placed on prednisone for 5 days which she completed yesterday. On Tuesday she was not getting any better and actually she had increased swelling to her face and it spread into her right orbit, the cheek and jaw with enlarged lymph nodes. On Tuesday she had a recheck with her doctor and was placed on doxycycline and has taken a total of 3 doses with only increasing redness and edema. She states she has been using antibacterial soap on the area and now it has a dark spot in the middle but no drainage she has been applying triple antibiotic ointment. The pain became more severe and the swelling in her eye affected her vision and she came into [facility] emergency center for evaluation. She has been afebrile, white count 14.7, creatinine 0.7. CAT scan of the head and orbit showed mild right orbital preseptal soft tissue swelling. Patient was started on Rocephin and vancomycin and admitted to the [facility] floor. Blood cultures in progress. Patient states that ice has helped a little bit with the pain but otherwise she is not feeling much better. Patient believes that her last hemoglobin A1c was around 7. April 14 2018 patient is certainly much improved. The extensive swelling to the right eye and periorbital area is improved, that I is no longer swollen closed but does have some irritation to the right medial aspect of the eyelid from the extensive swelling. No open other lesions are seen. The site of staph infection on the right forehead is much improved, there is minimal softening of the hard indurated area that has not grossly fluctuant and there is no drainage. 04/15/2018 patient is now much improved. Headache is down to 1, swelling to the face is generally resolved and she has no other new complaint. Looks forward to going home without having fevers or chills or other discomfort. She' s had some mild nausea and is done well with some Zofran. Objective - Vital Signs Vital signs: Vital Signs Temp 98.0 F 04/15/18 08:52 Pulse 83 04/15/18 08:52 Resp 16 04/15/18 08:52 BP 123/75 04/15/18 08:52 Pulse Ox 94 L 04/15/18 08:52 Intake & Output 04/14/18 04/15/18 04/15/18 18:59 06:59 18:59 Intake Total 240 1280 Balance 240 1280 Intake: Intake, IV Titration 200 Amount Sodium Chloride 0.9% 1, 150 000 ml @ 75 mls/hr IV . [id number] PATRICK Rx#:[id number] cefTRIAXone 1,000 mg In 50 Sodium Chloride 0.9% 50 ml @ 100 mls/hr IVPB Q12H PATRICK Rx#:[id number] Oral 240 1080 Other: Voiding Method Toilet # Voids 2 2 - Exam Gen: This is a 52-year-old morbidly obese female. She is sitting up in bed and eating breakfast and appears to be comfortable and in no acute distress. HEENT: Head is atraumatic, normocephalic. Wound noted to the area above the right eyebrow, no drainage. He extensive edema there is also dullness in the eye closure is almost completely resolved is a small area of irritation on the right upper lid medial without drainage. The area of irritation is considerably better on the right parietal as well as on the right eyelid Sclerae is anicteric. Conjunctiva pink. Mucous members of the mouth are moist. No oral lesions. No oropharyngeal erythema or edema. Positive lymph node enlargement on the right. NECK: Supple. No JVD. No lymphadenopathy. No thyromegaly. LUNGS: Clear to auscultation. No wheezes or rhonchi. No intercostal retractions. HEART: Regular rate and rhythm. No murmur. ABDOMEN: Morbidly obese. Soft. Bowel sounds are present. No masses. No tenderness. EXTREMITIES: No pedal edema. No calf tenderness. Dorsalis pedis +2 bilaterally. NEUROLOGICAL: Patient is awake, alert and oriented x3 - Labs CBC & Chem 7: 04/15/18 07:13 04/15/18 07:13 Labs: Abnormal Lab Results - Last 24 Hours (Table) 01/02/2004/15/18 04/15/18 Range/Units 20:21 01:57 07:13 Chloride 108 H (98-107) mmol/L POC Glucose (mg/dL) 132 H 199 H (75-99) mg/dL Total Protein 6.0 L (6.3-8.2) g/dL Albumin 3.3 L (3.5-5.0) g/dL 04/15/18 Range/Units 12:11 Chloride (98-107) mmol/L POC Glucose (mg/dL) 128 H (75-99) mg/dL Total Protein (6.3-8.2) g/dL Albumin (3.5-5.0) g/dL Microbiology - Last 24 Hours (Table) 04/11/18 14:12 Blood Culture - Preliminary Blood No Growth after 72 hours Laboratory Results WBC 10.6 k/uL (3.8-10.6) 04/15/18 07:13 RBC 4.55 m/uL (3.80-5.40) 04/15/18 07:13 Hgb 12.4 gm/dL (11.4-16.0) 04/15/18 07:13 Hct 39.7 % (34.0-46.0) 04/15/18 07:13 MCV 87.1 fL (80.0-100.0) 04/15/18 07:13 MCH 27.3 pg (25.0-35.0) 04/15/18 07:13 MCHC 31.3 g/dL (31.0-37.0) 04/15/18 07:13 RDW 13.9 % (11.5-15.5) 04/15/18 07:13 Plt Count 276 k/uL (150-450) 04/15/18 07:13 Neutrophils % 60 % 04/15/18 07:13 Neutrophils % (Manual) 49 % 04/13/18 07:49 Lymphocytes % 29 % 04/15/18 07:13 Lymphocytes % (Manual) 42 % 04/13/18 07:49 Monocytes % 5 % 04/15/18 07:13 Monocytes % (Manual) 7 % 04/13/18 07:49 Eosinophils % 3 % 04/15/18 07:13 Eosinophils % (Manual) 2 % 04/13/18 07:49 Basophils % 1 % 04/15/18 07:13 Neutrophils # 6.4 k/uL (1.3-7.7) 04/15/18 07:13 Neutrophils # (Manual) 5.93 k/uL (1.3-7.7) 04/13/18 07:49 Lymphocytes # 3.1 k/uL (1.0-4.8) 04/15/18 07:13 Lymphocytes # (Manual) 5.08 k/uL (1.0-4.8) H 04/13/18 07:49 Monocytes # 0.6 k/uL (0-1.0) 04/15/18 07:13 Monocytes # (Manual) 0.85 k/uL (0-1.0) 04/13/18 07:49 Eosinophils # 0.4 k/uL (0-0.7) 04/15/18 07:13 Eosinophils # (Manual) 0.24 k/uL (0-0.7) 04/13/18 07:49 Basophils # 0.1 k/uL (0-0.2) 04/15/18 07:13 Nucleated RBCs 0 /100 WBC (0-0) 04/13/18 07:49 Manual Slide Review Performed 04/12/18 08:33 Hypochromasia Slight 04/14/18 07:24 Poikilocytosis (manual Present 04/13/18 07:49 Anisocytosis (manual) Present 04/13/18 07:49 Sodium 142 mmol/L (137-145) 04/15/18 07:13 Potassium 4.6 mmol/L (3.5-5.1) 04/15/18 07:13 Chloride 108 mmol/L (98-107) H 04/15/18 07:13 Carbon Dioxide 29 mmol/L (22-30) 04/15/18 07:13 Anion Gap 5 mmol/L 04/15/18 07:13 BUN 12 mg/dL (7-17) 04/15/18 07:13 Creatinine 0.73 mg/dL (0.52-1.04) 04/15/18 07:13 Est GFR (CKD-EPI)AfAm >90 (>60 ml/min/1.73 sqM) 04/15/18 07:13 Est GFR (CKD-EPI)NonAf >90 (>60 ml/min/1.73 sqM) 04/15/18 07:13 Glucose 99 mg/dL (74-99) 04/15/18 07:13 POC Glucose (mg/dL) 128 mg/dL (75-99) H 04/15/18 12:11 POC Glu [employer] ID Jonathan López 04/15/18 12:[address] Glu mg/dL 197 04/13/18 07:49 Hemoglobin A1c 8.5 % (4.0-6.0) H 04/13/18 07:49 Calcium 9.0 mg/dL (8.4-10.2) 04/15/18 07:13 Total Bilirubin 0.2 mg/dL (0.2-1.3) 04/15/18 07:13 AST 17 U/L (14-36) 04/15/18 07:13 ALT 19 U/L (9-52) 04/15/18 07:13 Alkaline Phosphatase 68 U/L (38-126) 04/15/18 07:13 Total Protein 6.0 g/dL (6.3-8.2) L 04/15/18 07:13 Albumin 3.3 g/dL (3.5-5.0) L 04/15/18 07:13 Microbiology 04/11/18 14:12 Blood Blood Culture - Preliminary No Growth after 72 hours Assessment and Plan (1) Periorbital cellulitis Narrative/Plan: This pleasant 52-year-old woman is a known history of diabetes mellitus developed the significant preseptal cellulitis of the right periorbital area. The patient was convinced that she had a brown recluse spider bite. We discussed that they are not endemic to [place], it is winter and highly unlikely that this is the etiology of this problem. With her diabetes in the current abnormality it is highly likely this is a staphylococcal infection, could even be MRSA although she has no history, it would treat appropriately. Ceftriaxone and daptomycin have been initiated while cultures are in process. With antibiotic therapy she is now showing improvement already from the time of admission. Leukocytosis is due to underlying infection. The patient does not understand other than some head injury how she could obtain this infection. We do discuss that infections occur in patients with diabetes are more likely to have infections and others. Innocuous injury and trauma often initiates these have infections. There is evidence of any necrosis, the site appears to have more of a phlegmon and abscess and surgical drainage is not indicated at this time but may change required drainage in the near future. Would continue current course of antibiotic therapy. Is having significant pain we'll transition Motrin to Toradol to improve pain control. 04/14/2018 patient is markedly improved. Responding very well to current course of antibiotic therapy with Rocephin and daptomycin. The patient remains convinced that she has had a brown recluse spider bite that her brought home from [place] because his been working there. I suggest that she looks the [facility] website that reports that the vast majority of people think they have a spider bite that developed a skin lesion and infection is actually from staph or MRSA infection. She is responding very well to treatment of an infection and again information is given to her as to why this is most likely staphylococcal infection. Some topical Polysporin ophthalmic will be given to the bit of irritation to the eyelid. Expect that she will be considerably improved and likely Nicola for discharge home tomorrow. Antibiotic therapy can then be device. Severe headache has been well controlled with Toradol and overall she is improved. 04/15/2018 patient is now further improved. Headache is all most completely resolved, his developed some nausea likely from the anti-inflammatory which is now discontinued and responding to some Zofran. Patient is ready for discharge to home and trimethoprim sulfamethoxazole and Zofran have been sent to her pharmacy and she is being readied for discharge to home. The Polysporin can be continued to the eye irritation over the next few days until completely resolved. She follow up with her primary care physician in the near future and can be referred back to the office if there is any further acute difficulties. Status: Acute Code(s): L03.213 - PERIORBITAL CELLULITIS SNOMED Code(s): 552893781
== END 2018-04-15 15:25 | disposition home or self-care (01) | DRG 603 ==
LOC: EC 15:39 → 4SSUR 18:01
PROVIDERS: ADMIT Internal Medicine; ATTEND Internal Medicine
DX: L03.213 Periorbital cellulitis (principal); Z68.41 Body mass index [BMI] 40.0-44.9, adult; E66.01 Morbid (severe) obesity due to excess calories; E11.9 Type 2 diabetes mellitus without complications; E78.5 Hyperlipidemia, unspecified; B95.8 Unspecified staphylococcus as the cause of diseases classified elsewhere; E03.9 Hypothyroidism, unspecified; R51 Headache; I10 Essential (primary) hypertension; F32.9 Major depressive disorder, single episode, unspecified; F41.9 Anxiety disorder, unspecified; M54.30 Sciatica, unspecified side; Z79.890 Hormone replacement therapy; Z79.4 Long term (current) use of insulin; Z79.899 Other long term (current) drug therapy; Z90.710 Acquired absence of both cervix and uterus; Z87.81 Personal history of (healed) traumatic fracture; Z87.19 Personal history of other diseases of the digestive system; Z87.891 Personal history of nicotine dependence; Z83.3 Family history of diabetes mellitus; Z80.3 Family history of malignant neoplasm of breast; Z82.49 Family history of ischemic heart disease and other diseases of the circulatory system; Z81.1 Family history of alcohol abuse and dependence; Z83.79 Family history of other diseases of the digestive system
CPT/HCPCS: 36415; 70481; 80048; 80053; 83036; 85025; 87040; 96365; 96367; 99284

== ENCOUNTER → 2021-09-08 | Outpatient (CLI) | payer BC | END | disposition home or self-care (01) | LOC: LABWHC1 12:34 | PROVIDERS: ATTEND Family Medicine | DX: R76.11 Nonspecific reaction to tuberculin skin test without active tuberculosis (principal) | CPT/HCPCS: 36415; 86480 ==

== ENCOUNTER → 2023-09-21 | Outpatient (CLI) | payer BC ==
--- NOTE | 2023-09-22 11:16 | NM ---
EXAMINATION TYPE: NM thyroid image w uptake DATE OF EXAM: 09/22/2023 COMPARISON: NONE CLINICAL INDICATION: Female, 58 years old with history of E04.1 NONTOXIC SINGLE THYROID NODULE; TECHNIQUE: Thyroid iodine uptake is calculated and images performed after the oral administration of 307 uCi 1-123 Capsule. FINDINGS: There is normal distribution of activity throughout the gland. The 4 hour iodine uptake is calculated at 5.5% (normal range 8-14%). The 24-hour iodine uptake is calculated at 25.8% (normal ra nge 15-35%). IMPRESSION: Slightly decreased 4 hour and normal 24-hour thyroid scan and uptake. Findings felt to re present euthyroid.
== END | disposition home or self-care (01) ==
LOC: RADNMMAIN 08:44
PROVIDERS: ATTEND Family Medicine
DX: E04.1 Nontoxic single thyroid nodule (principal); R22.0 Localized swelling, mass and lump, head
CPT/HCPCS: 78014; A9516

== ENCOUNTER 2023-10-11 08:59 | Day surgery (SDC) | payer BC ==
[2023-10-11] MEDS: ALPRAZolam 0.5 MG TAB PO STA (09:25)
[2023-10-11 09:53] VITALS: RESP 16; TEMP 98.1
[2023-10-11 10:59] VITALS: BP 118/75; PULSE 80
--- NOTE | 2023-10-11 12:23 | US ---
EXAMINATION TYPE: US FNA thyroid first lesion DATE OF EXAM: 10/11/2023 11:49 AM CLINICAL INDICATION:Female, 58 years old with history of E04.1 NONTOXIC SINGLE THYROID NODULE; , thyr oid nodule. COMPARISON: None ATTENDING: Dr. Caleb Yepez PROCEDURE: Informed consent was obtained. The risks and benefits of the procedure were discussed with the patien t. The site was marked. Timeout procedure was performed Ultrasound imaging demonstrates right thyroid nodule The patient was prepped, draped in the usual sterile fashion, and locally anesthetized with 1% lidoca ine. Five fine needle aspiration were then performed with a 25 gauge needle. Samples were sent to [facility] pathology department for further analysis. Patient tolerated the procedure without incident and wa s sent home in stable condition. IMPRESSION: Successful ultrasound guided fine needle aspiration.
== END 2023-10-11 10:55 | disposition home or self-care (01) ==
LOC: RADPROMAIN 08:59
PROVIDERS: ATTEND Family Medicine
DX: E04.1 Nontoxic single thyroid nodule (principal)
CPT/HCPCS: 10005; 88173; 88305